=== PATIENT | male | born 1970 | race Caucasian/White ===

== ENCOUNTER 2018-06-16 15:14 | Inpatient (IN) | payer MEDICAID ==
[~2018-06-16] VITALS: Ht 177.8 cm; Wt 86.1 kg
[2018-06-16] MEDS ORDERED: SODIUM CHLORIDE FLUSH 10ML SYR IVF ONE ×2 (15:30→16:30)
[2018-06-16 16:05] LABS: INTERNATIONAL NORMALIZED RATIO 0.96 (0.93-1.1)
[2018-06-16 16:07] LABS: ALBUMIN 2.9 g/dL (3.4-5.0); ANION GAP 6 mmol/L (5-15); CALCIUM 7.9 mg/dL (8.5-10.1); CHLORIDE 107 mmol/L (98-107)
[2018-06-16 16:11] LABS: ALANINE AMINOTRANSFERASE 36 U/L (12-78); ALKALINE PHOSPHATASE 46 U/L (45-117); BILIRUBIN,TOTAL 0.2 mg/dL (0.2-1.0); CREATININE 1.07 mg/dL (0.7-1.3); MEAN CORPUSCULAR HEMOGLOBIN 18.6 pg (27.5-34.5); MEAN CORPUSCULAR HGB CONC 30.5 g/dL (33.2-36.2); MEAN CORPUSCULAR VOLUME 60.9 fL (81-97); MEAN PLATELET VOLUME 8.4 fL (7.4-10.4); PLATELET COUNT 438 x10^3/uL (130-400); RED BLOOD COUNT 3.88 x10^6/uL (4.38-5.82); RED CELL DISTRIBUTION WIDTH 20.1 % (9.4-14.8)
[2018-06-16] MEDS ORDERED: PANTOPRAZOLE 80 MG in SODIUM CHLORIDE 0.9% 50 ML IVPB ONE (16:18)
[2018-06-16] MEDS ORDERED: PANTOPRAZOLE 80 MG in SODIUM CHLORIDE 0.9% 100 ML IV SCH (16:18)
[2018-06-16] MEDS ORDERED: SODIUM CHLORIDE 0.9% 1,000ML IVBOLUS ONE (16:30)
[2018-06-16 16:45] LABS: BASOPHILS # (AUTO) 0.03 x10^3/uL (0-0.1); BASOPHILS % (AUTO) 0 % (0-1); EOSINOPHILS # (AUTO) 0.21 x10^3/uL (0-0.4); EOSINOPHILS % (AUTO) 3 % (1-7); LYMPHOCYTES # (AUTO) 2.03 x10^3/uL (1-3.4); LYMPHOCYTES % (AUTO) 24 % (22-44); MD SCAN; MONOCYTES # (AUTO) 0.78 x10^3/uL (0.2-0.8); MONOCYTES % (AUTO) 9 % (2-9); NEUTROPHILS # (AUTO) 5.28 x10^3/uL (1.8-6.8); NEUTROPHILS % (AUTO) 63 % (42-75)
[2018-06-16] MEDS ORDERED: ONDANSETRON 2MG/ML, 2ML IVPush PRN (18:00)
[2018-06-16] MEDS ORDERED: BISACODYL 10 MG SUPP PR PRN (18:00)
[2018-06-16] MEDS ORDERED: POLYETHYLENE GLYCOL 17 GM PACKET PO PRN (18:00)
[2018-06-16] MEDS ORDERED: morphine SULFATE 10 MG/ML, 1ML IVPush PRN (18:00)
[2018-06-16] MEDS: PANTOPRAZOLE 40 MG IV IVPush SCH (18:00)
[2018-06-16] MEDS ORDERED: ACETAMINOPHEN 325 MG TABLET PO PRN (18:00)
[2018-06-16 19:15] VITALS: BP 109/65
[2018-06-16 20:14] VITALS: BP 109/65
[2018-06-16] MEDS: SODIUM CHLORIDE FLUSH 10ML SYR IVF SCH (20:51)
[2018-06-16 21:10] LABS: MICROSCOPIC NOT IND
[2018-06-16 21:13] LABS: CULTURE INDICATED? NO
[2018-06-17] VITALS (11 sets, daily range): BP systolic 105–122; BP diastolic 65–77
[2018-06-17] MEDS: PANTOPRAZOLE 40 MG IV IVPush SCH (05:32)
[2018-06-17 07:15] LABS: MEAN CORPUSCULAR HEMOGLOBIN 20.4 pg (27.5-34.5); MEAN CORPUSCULAR HGB CONC 30.9 g/dL (33.2-36.2); MEAN PLATELET VOLUME 7.9 fL (7.4-10.4); PLATELET COUNT 368 x10^3/uL (130-400); RED BLOOD COUNT 4.29 x10^6/uL (4.38-5.82); RED CELL DISTRIBUTION WIDTH 25.1 % (9.4-14.8)
[2018-06-17 07:17] LABS: MD YES
[2018-06-17] MEDS ORDERED: PROPOFOL 10 MG/ML, 50ML ONE (07:20)
[2018-06-17 07:26] LABS: % IRON SATURATION 24 % (20-55); ALANINE AMINOTRANSFERASE 32 U/L (12-78); ALBUMIN 2.8 g/dL (3.4-5.0); ANION GAP 3 mmol/L (5-15); CALCIUM 7.8 mg/dL (8.5-10.1); CHLORIDE 110 mmol/L (98-107); IRON LEVEL 108 mcg/dL (65-175); TOTAL IRON BINDING CAPACITY 442 mcg/dL (250-450)
[2018-06-17 07:29] LABS: ALKALINE PHOSPHATASE 42 U/L (45-117); BILIRUBIN,TOTAL 1.1 mg/dL (0.2-1.0); TOTAL PROTEIN 5.8 g/dL (6.4-8.2)
[2018-06-17] MEDS ORDERED: OMEPRAZOLE 20 MG CAPSULE.DR PO SCH (08:00)
[2018-06-17] MEDS ORDERED: SUCRALFATE 1 GM TABLET PO SCH (08:00)
[2018-06-17 08:21] LABS: <PLATELET ESTIMATE> ADEQUATE; <PLT MORPHOLOGY> NORMAL PLT MORPH; ANISOCYTOSIS 2+; EOS#(MANUAL) 0.14 x10^3/uL (0.0-0.4); EOS% (MANUAL) 2 % (1-7); LYMPH#(MANUAL) 1.54 x10^3/uL (1-3.4); LYMPHS% (MANUAL) 22 % (22-44); MONOS#(MANUAL) 0.28 x10^3/uL (0.3-2.7); MONOS% (MANUAL) 4 % (2-9); SEG#(MANUAL) 5.04 x10^3/uL (1.8-6.8); SEGS% (MANUAL) 72 % (42-75)
[2018-06-17 08:22] LABS: HYPOCHROMIA 1+; MICROCYTOSIS 2+
[2018-06-17] MEDS: SODIUM CHLORIDE FLUSH 10ML SYR IVF SCH (08:54)
[2018-06-17] MEDS ORDERED: SENNA/DOCUSATE TABLET PO SCH (09:00)
[2018-06-17] MEDS ORDERED: SUCR1TAB33 PO (11:00)
[2018-06-17] MEDS ORDERED: OMEP-110 PO (11:00)
== END 2018-06-17 12:40 | disposition home or self-care (01) | DRG 381 ==
LOC: ED 17:22 → EDIP 17:23 → ED 17:46 → 3NE 18:47
PROVIDERS: ADMIT Family Medicine; ATTEND Family Medicine
PROC: 30233N1 Transfusion of Nonautologous Red Blood Cells into Peripheral Vein, Percutaneous Approach (ICD-10-PCS; 2018-06-17)
PROC: 0DJ08ZZ Inspection of Upper Intestinal Tract, Via Natural or Artificial Opening Endoscopic (ICD-10-PCS; principal; 2018-06-17 10:30)
DX: K22.11 Ulcer of esophagus with bleeding (principal); D62 Acute posthemorrhagic anemia; E44.0 Moderate protein-calorie malnutrition; F12.10 Cannabis abuse, uncomplicated; F15.10 Other stimulant abuse, uncomplicated; K21.9 Gastro-esophageal reflux disease without esophagitis; K44.9 Diaphragmatic hernia without obstruction or gangrene; D47.3 Essential (hemorrhagic) thrombocythemia; Z71.51 Drug abuse counseling and surveillance of drug abuser; Z80.3 Family history of malignant neoplasm of breast; Z87.19 Personal history of other diseases of the digestive system; Z68.27 Body mass index [BMI] 27.0-27.9, adult
CPT/HCPCS: 36415; 36430; 80053; 80074; 81003; 82728; 83540; 83550; 85014; 85018; 85025; 85610; 86677; 86850; 86900; 86923; 87806; 93005; 96365; 99285; G0378; J2704; C9113; G0475; J7030; P9016

== ENCOUNTER 2018-11-03 18:58 | Emergency (ER) | payer MEDICAID ==
[~2018-11-03] VITALS: Ht 177.8 cm; Wt 86.1 kg
[~2018-11-03 18:58] MED LIST: OMEP-110 PO; SUCR1TAB33 PO
--- NOTE | 2018-11-03 19:37 | NUR ---
FIRST CONTACT WITH PT. PT SITTING UP IN [facility], NAD NOTED. PWD. PT REPORTS INTERMITTENT EPIGASTRIC PAIN X TWO DAYS W/ DARK STOOL. PT REPORTS NEAR SYNCOPAL TODAY WHILE 'STRAINING' ON TOILET FOR BM. PT DENIES CP/DIZZINESS/WEAKNESS AT THIS TIME. HX OF GI BLEED W/ ADMIT FOR SAME FIVE MONTHS AGO, UNKNOWN IF UPPER OR LOWER. DENIES N/V/D. DENIES TAKING BLOOD THINNERS. BP/SPO2/ECG MONITOR IN PLACE. NSR ON MONITOR. IV ESTABLISHED, LABS DRAWN, TYPE AND SCREEN DRAWN WITH LAB AT BS. VS WNL.
[2018-11-03 19:55] LABS: PROTHROMBIN TIME 10.5 Seconds (9.6-11.5)
[2018-11-03 19:58] LABS: ALANINE AMINOTRANSFERASE 49 U/L (12-78); ANION GAP 5 mmol/L (5-15); CALCIUM 8.2 mg/dL (8.5-10.1); CHLORIDE 105 mmol/L (98-107)
[2018-11-03 20:02] LABS: ALKALINE PHOSPHATASE 47 U/L (45-117); BILIRUBIN,TOTAL 0.5 mg/dL (0.2-1.0); TROPONIN I < 0.015 ng/mL (0.000-0.045)
[2018-11-03 20:09] LABS: MD YES; MEAN CORPUSCULAR HEMOGLOBIN 18.5 pg (27.5-34.5); MEAN CORPUSCULAR HGB CONC 29.8 g/dL (33.2-36.2); MEAN PLATELET VOLUME 9.3 fL (7.4-10.4); PLATELET COUNT 663 x10^3/uL (130-400); RED BLOOD COUNT 6.13 x10^6/uL (4.38-5.82)
[2018-11-03 20:26] LABS: ANISOCYTOSIS 2+; LYMPH#(MANUAL) 2.65 x10^3/uL (1-3.4); LYMPHS% (MANUAL) 26 % (22-44); MONOS#(MANUAL) 0.41 x10^3/uL (0.3-2.7); MONOS% (MANUAL) 4 % (2-9); REACTIVE LYMPHS % (MANUAL) 1 % (0-0); SEG#(MANUAL) 7.04 x10^3/uL (1.8-6.8); SEGS% (MANUAL) 69 % (42-75)
[2018-11-03 20:28] LABS: <PLATELET ESTIMATE> INCREASED; HYPOCHROMIA 1+; LARGE PLATELETS 1+; MICROCYTOSIS 2+; OVALOCYTES 1+; TARGET CELLS 1+
[2018-11-03 21:48] VITALS: BP 130/79
== END 2018-11-03 21:50 | disposition home or self-care (01) ==
LOC: ED 19:22
DX: K92.1 Melena (principal); R42 Dizziness and giddiness; I95.9 Hypotension, unspecified
CPT/HCPCS: 36415; 80053; 83690; 84484; 85025; 85610; 86850; 86900; 93005; 99284

== ENCOUNTER 2019-05-28 19:38 | Emergency (ER) | payer MEDICAID ==
[~2019-05-28] VITALS: Ht 177.8 cm; Wt 87.0 kg
--- NOTE | 2019-05-28 19:42 | NUR ---
ATTEMPTED TO CALL PT FROM LOBBY TO TRIAGE. PT NIL X 1
[2019-05-28 19:51] VITALS: BP 126/78
[2019-05-28] MEDS ORDERED: MAALOX/HYOSCYAMINE/LIDOCAINE 45 ML BTL PO ONE (20:30)
[2019-05-28] MEDS ORDERED: FAMOTIDINE 20 MG TABLET PO ONE (20:30)
[2019-05-28 20:49] LABS: BASOPHILS # (AUTO) 0.05 x10^3/uL (0-0.1); BASOPHILS % (AUTO) 1 % (0-1); EOSINOPHILS # (AUTO) 0.12 x10^3/uL (0-0.4); EOSINOPHILS % (AUTO) 1 % (1-7); LYMPHOCYTES # (AUTO) 2.35 x10^3/uL (1-3.4); LYMPHOCYTES % (AUTO) 28 % (22-44); MD NO; MEAN CORPUSCULAR HEMOGLOBIN 23.4 pg (27.5-34.5); MEAN CORPUSCULAR HGB CONC 31.4 g/dL (33.2-36.2); MEAN CORPUSCULAR VOLUME 74.4 fL (81-97); MEAN PLATELET VOLUME 8.5 fL (7.4-10.4); MONOCYTES # (AUTO) 0.92 x10^3/uL (0.2-0.8); MONOCYTES % (AUTO) 11 % (2-9); NEUTROPHILS # (AUTO) 4.83 x10^3/uL (1.8-6.8); NEUTROPHILS % (AUTO) 58 % (42-75); PLATELET COUNT 341 x10^3/uL (130-400); RED BLOOD COUNT 6.32 x10^6/uL (4.38-5.82); RED CELL DISTRIBUTION WIDTH 17.7 % (9.4-14.8)
[2019-05-28] MEDS ORDERED: FAMOTIDINE 20 MG TABLET ONE (20:55)
[2019-05-28 20:56] LABS: ALANINE AMINOTRANSFERASE 28 U/L (12-78); ALBUMIN 3.7 g/dL (3.4-5.0); ANION GAP 5 mmol/L (5-15); CALCIUM 8.5 mg/dL (8.5-10.1); CHLORIDE 109 mmol/L (98-107); CREATININE 1.54 mg/dL (0.7-1.3)
[2019-05-28] MEDS ORDERED: MAALOX/HYOSCYAMINE/LIDOCAINE 45 ML BTL ONE (20:56)
--- NOTE | 2019-05-28 20:58 | NUR ---
PT MEDICATED PER EMAR .5 RIGHTS ADDRESSED
[2019-05-28 21:00] LABS: ALKALINE PHOSPHATASE 87 U/L (45-117); BILIRUBIN,TOTAL 0.4 mg/dL (0.2-1.0); TOTAL PROTEIN 7.7 g/dL (6.4-8.2); TROPONIN I < 0.015 ng/mL (0.000-0.045)
--- NOTE | 2019-05-28 22:11 | NUR ---
Patient/Caregiver given discharge instructions and they have confirmed that they understand the instructions. Patient ambulatory with steady gait.
== END 2019-05-28 22:12 | disposition home or self-care (01) ==
LOC: ED 22:08
DX: K21.9 Gastro-esophageal reflux disease without esophagitis (principal); R07.89 Other chest pain
CPT/HCPCS: 36415; 71046; 80053; 83690; 84484; 85025; 93005; 99284

== ENCOUNTER 2019-10-24 14:25 | Observation (INO) | payer MEDICAID ==
[~2019-10-24] VITALS: Ht 177.8 cm; Wt 86.5 kg
--- NOTE | 2019-10-24 14:40 | NUR ---
PACKAGE CAR DRIVER NOTE: PT SEEN BY EDMD FARHEEN IN TRIAGE, SYMPTOMS AND TIME OF ONSET REVIEWED. PER EDMD, PT IS NOT A CODE NEURO WEAKNESS/NUMBNESS HAS RESOLVED. EKG TAKEN IN TRIAGE.
[2019-10-24] MEDS ORDERED: PREVACID PO (14:41)
--- NOTE | 2019-10-24 15:18 | NUR ---
PT TO ED FOR RIGHT SIDED NUMBNESS IN ARM LEG AND FACE. ALL S/S RESOLVED AT TIME OF ARRIVAL AND WILL NOT BE A CODE NEURO. PT ABLE TO AMBULATE WITHOUT ASSISTANCE. PT CONNCTED TO ALL MONITORS. VSS. DR. CABAN TO BS FOR ASSESSMENT. ORDERS RECEVIED. PIV ESTABLISHED AND LABS DRAWN. AWAITING CT AND LAB RESULTS.
[2019-10-24 15:38] LABS: ALANINE AMINOTRANSFERASE 32 U/L (12-78); ALBUMIN 3.5 g/dL (3.4-5.0); ANION GAP 7 mmol/L (5-15); CALCIUM 8.7 mg/dL (8.5-10.1); CHLORIDE 111 mmol/L (98-107); CREATININE 1.35 mg/dL (0.7-1.3)
[2019-10-24 15:40] LABS: ALKALINE PHOSPHATASE 69 U/L (45-117); BILIRUBIN,TOTAL 0.2 mg/dL (0.2-1.0); TOTAL PROTEIN 7.2 g/dL (6.4-8.2)
[2019-10-24 15:42] LABS: INTERNATIONAL NORMALIZED RATIO 0.97 (0.93-1.1); PROTHROMBIN TIME 10.3 Seconds (9.6-11.5)
[2019-10-24 15:48] LABS: MEAN CORPUSCULAR HEMOGLOBIN 20.7 pg (27.5-34.5); MEAN CORPUSCULAR HGB CONC 30.5 g/dL (33.2-36.2); MEAN CORPUSCULAR VOLUME 67.9 fL (81-97); MEAN PLATELET VOLUME 8.4 fL (7.4-10.4); PLATELET COUNT 336 x10^3/uL (130-400); RED BLOOD COUNT 6.04 x10^6/uL (4.38-5.82)
[2019-10-24 15:49] LABS: HEMOGRAM NOTE RECHECKED
[2019-10-24 15:55] LABS: MD MORPH REVIEW ONLY
[2019-10-24 15:56] LABS: BASOPHILS # (AUTO) 0.05 x10^3/uL (0-0.1); BASOPHILS % (AUTO) 0 % (0-1); EOSINOPHILS # (AUTO) 0.08 x10^3/uL (0-0.4); EOSINOPHILS % (AUTO) 1 % (1-7); LYMPHOCYTES # (AUTO) 1.77 x10^3/uL (1-3.4); LYMPHOCYTES % (AUTO) 16 % (22-44); MONOCYTES # (AUTO) 1.02 x10^3/uL (0.2-0.8); MONOCYTES % (AUTO) 9 % (2-9); NEUTROPHILS # (AUTO) 8.52 x10^3/uL (1.8-6.8); NEUTROPHILS % (AUTO) 75 % (42-75)
[2019-10-24 15:57] LABS: HYPOCHROMIA 2+; MICROCYTOSIS 2+
[2019-10-24 15:58] LABS: ANISOCYTOSIS 2+; OVALOCYTES 1+
[2019-10-24 15:59] LABS: <PLATELET ESTIMATE> ADEQUATE; <PLT MORPHOLOGY> NORMAL PLT MORPH; SPHEROCYTES 1+
[2019-10-24] MEDS ORDERED: ASPIRIN 81 MG TABLET CHEW PO ONE (16:00)
[2019-10-24] MEDS ORDERED: ASPIRIN 81 MG TABLET CHEW ONE (16:05)
--- NOTE | 2019-10-24 16:07 | NUR ---
pt resting in room. vss. all results back. Dr. Rose updated. admit orders received. per edmd, pt can eat now. diet tray ordered. awaiting room assignment.
[2019-10-24] MEDS ORDERED: SODIUM CHLORIDE 0.9% 1,000 ML IV SCH (16:48)
[2019-10-24] MEDS ORDERED: ONDANSETRON ODT 4 MG PO PRN (17:00)
[2019-10-24] MEDS ORDERED: ONDANSETRON 2MG/ML, 2ML IVPush PRN (17:00)
[2019-10-24] MEDS ORDERED: POTASSIUM CHLORIDE 20 MEQ TAB.ER.PRT PO ONE (17:00)
[2019-10-24] MEDS ORDERED: ACETAMINOPHEN 325 MG TABLET PO PRN (17:00)
[2019-10-24] MEDS ORDERED: GADOTERATE 10 MMOL/20 ML SYR ONE (17:21)
[2019-10-24] MEDS ORDERED: HEPARIN 5,000 UNITS/ML, 1ML SQ SCH (18:00)
[2019-10-24 19:03] VITALS: BP 127/76
[2019-10-24] MEDS ORDERED: ATORVASTATIN 40 MG TABLET PO SCH (21:00)
[2019-10-25] MEDS ORDERED: ASPIRIN 325 MG TABLET EC PO SCH (06:00)
== END 2019-10-24 21:20 | disposition left against medical advice (07) ==
LOC: ED 15:22 → INTOOBSV 16:03 → EDIP 16:03 → 4WST 17:55
PROVIDERS: ADMIT Internal Medicine; ATTEND Internal Medicine
DX: G45.9 Transient cerebral ischemic attack, unspecified (principal); E87.6 Hypokalemia; F12.90 Cannabis use, unspecified, uncomplicated; K22.10 Ulcer of esophagus without bleeding; G46.0 Middle cerebral artery syndrome; I10 Essential (primary) hypertension; G89.29 Other chronic pain; N28.9 Disorder of kidney and ureter, unspecified; Z87.891 Personal history of nicotine dependence
CPT/HCPCS: 36415; 70450; 70553; 80053; 85025; 85610; 85730; 87806; 93005; 96372; 99285; A9575; G0378; J1644; J7030; G0475

== ENCOUNTER 2020-04-12 03:08 | Emergency (ER) | payer MEDICAID ==
[~2020-04-12] VITALS: Ht 177.8 cm; Wt 83.0 kg
[~2020-04-12 03:08] MED LIST changes: +PREVACID PO
[2020-04-12 03:13] VITALS: BP 123/74
--- NOTE | 2020-04-12 03:19 | NUR ---
PT AMBULATES FROM TRIAGE TO ROOM WITH STEADY GAIT.
--- NOTE | 2020-04-12 05:10 | NUR ---
PT D/C WITH D/C SUMMARY. PT PROVIDED WITH CRUTCHES AND IS ABLE TO DEMONSTRATE CORRECT USE. PT DENIES ANY OTHER NEEDS PERTAINING TO THIS VISIT AND AMBULATES TO REGISTRATION DESK FOR D/C HOME.
== END 2020-04-12 05:19 | disposition home or self-care (01) ==
LOC: ED 04:03
DX: S92.354A Nondisplaced fracture of fifth metatarsal bone, right foot, initial encounter for closed fracture (principal); G89.11 Acute pain due to trauma; K21.9 Gastro-esophageal reflux disease without esophagitis; Z86.73 Personal history of transient ischemic attack (TIA), and cerebral infarction without residual deficits; Z87.891 Personal history of nicotine dependence; W19.XXXA Unspecified fall, initial encounter; Y93.01 Activity, walking, marching and hiking; Y92.89 Other specified places as the place of occurrence of the external cause; Y99.8 Other external cause status
CPT/HCPCS: 29515; 99283

== ENCOUNTER 2021-02-05 13:30 | Emergency (ER) | payer MEDICAID ==
--- NOTE | 2021-02-05 13:26 | NUR ---
securities consultant: attempted to call pt for triage, no answer in lobby
--- NOTE | 2021-02-05 13:31 | NUR ---
subwarehouse supervisor: attempted to call pt for triage, no answer in lobby
--- NOTE | 2021-02-05 13:39 | NUR ---
slot shift supervisor: attempted to all pt for triage, no answer in lobby
== END 2021-02-05 13:54 | disposition left against medical advice (07) ==
LOC: ED 13:48
DX: R07.89 Other chest pain (principal); Z53.21 Procedure and treatment not carried out due to patient leaving prior to being seen by health care provider

== ENCOUNTER 2021-03-03 17:32 | Emergency (ER) | payer MEDICAID ==
--- NOTE | 2021-03-03 17:48 | NUR ---
LWBS, PT WALKED INTO TRIAGE ROOM AND STATES "I WANT TO LEAVE" REFUSING VITALS. RN EDUCATED ON IMPORTANCE OF CHEKCING VITALS AND BEING EVALUATED BY PROVIDER BEFORE LEAVING. PT STATES "I'LL COME BACK, I NEED TO LEAVE", PT LEFT TRIAGE.
== END 2021-03-03 18:04 | disposition left against medical advice (07) ==
LOC: ED 18:00
DX: R07.9 Chest pain, unspecified (principal); Z53.21 Procedure and treatment not carried out due to patient leaving prior to being seen by health care provider